=== PATIENT | female | born 1930 | race Caucasian/White ===

== ENCOUNTER 2018-04-01 13:48 | Emergency (ER) | payer OTHER, BC ==
[2018-04-01 13:54] VITALS: BMI 25.7
--- NOTE | 2018-04-01 14:04 | PDOC ---
History of Present Illness - General Chief Complaint: Redness To Affected Area Stated Complaint: LT SWOLLEN LEG Time Seen by Provider: 04/01/18 14:04 History Source: Patient, Family Exam Limitations: No Limitations - History of Present Illness Initial Comments: 04/01/18 14:27 88 year old female with PMH SC, TIA, PAD, baseline use of walker presents to ED today for bilateral feet swelling and redness x2 days. She states the left is worse than the right. She denies fever, chills, nausea, vomiting, diarrhea, chest pain, shortness of breath, palpitations, lightheadedness, dizziness, weakness, numbness, tingling. Pt took tramadol 50 mg today at 1100. Pt normally walks with a walker, but today was unable to walk and started using a wheelchair. She was seen by Dr. Gael Corona 12/15/17 for leg pain, was diagnosed with PAD. Denies recent steroid use, Hx diabetes, Hx spinal injections, Hx immunosuppression. PCP - Dr. Gatica Vascular - Dr. Gael Corona Neuro - Dr. Armstrong Allergies - Penicillin Past History - Past Medical History Allergies/Adverse Reactions: Allergies Allergy/AdvReac Type Severity Reaction Status Date / Time Penicillins Allergy Verified 04/01/18 13:53 Home Medications: Ambulatory Orders Aspirin [ASA -] 1 tab PO DAILY 12/19/17 Enalapril Maleate [Vasotec] 2.5 mg PO DAILY 12/19/17 Metoprolol Tartrate 12.5 mg PO DAILY 12/19/17 Pravastatin Sodium 10 mg PO HS 12/19/17 Carbidopa/Levodopa [Rytary ER 61.25 mg-245 mg Cap] 1 each PO BID 04/01/18 Cholecalciferol (Vitamin D3) [Vitamin D3] 1,000 unit PO DAILY 04/01/18 Sulfamethoxazole/Trimethoprim [Bactrim Ds -] 1 tab PO BID 3 Days #6 tablet 04/01 Tramadol HCl 50 mg PO TID 04/01/18 Cardiac Disorders: Yes (cardiac stents) COPD: No HTN: Yes Hypercholesterolemia: Yes - Suicide/Smoking/Psychosocial Hx Smoking History: Never smoked Review of Systems - Review of Systems Able to Perform ROS?: Yes Comments:: 04/01/18 14:30 General: denies fever, chills, night sweats, generalized weakness. HEENT: denies sore throat, rhinorrhea, ear pain. Heart: denies chest pain, palpitations, syncope, lower extremity swelling, diaphoresis. Respiratory: denies shortness of breath, cough, sputum production, hematemesis. Abdomen: denies abdominal pain, nausea, vomiting, diarrhea, constipation, blood in stool. : denies dysuria, increased urinary frequency, hematuria, urinary incontinence , flank pain. Back: denies back pain, flank pain. Musculoskeletal: admits to foot pain and swelling. Neurological: denies headache, dizziness, numbness, tingling, weakness. Skin: admits to redness of feet. *Physical Exam - Vital Signs Last Vital Signs Temp Pulse Resp BP Pulse Ox 97 F L 85 18 129/72 99 04/01/18 13:51 04/01/18 13:51 04/01/18 13:51 04/01/18 13:51 04/01/18 13:51 - Physical Exam Comments: 04/01/18 14:31 Appearance: comfortable. HEENT: head is normocephalic, atraumatic. EOMI. PERRLA. Neck: supple. Full ROM. Heart: regular rhythm. no murmurs, rubs or gallops. No pericardial friction rub. Lungs: clear to auscultation bilaterally. no crackles, rhonchi or wheezing. no stridor. Abdomen: soft, nontender. normal bowel sounds. no rebound, guarding, masses. Extremities: 0/2 DSP bilaterally. 2/2 radial pulse bilaterally. pain to palpation of bilateral lower extremity. Left foot: non-pitting edema, erythema noted. Right foot: minimal non-pitting edema, minimal erythema noted. Neurological: Alert. Oriented x3. CN 2-12 grossly intact. Moves all four extremities. Full sensation all extremities and bilateral face. ED Treatment Course - LABORATORY CBC & Chemistry Diagram: 04/01/18 15:02 04/01/18 15:02 Medical Decision Making - Medical Decision Making 04/01/18 14:33 88 year old female with PMH SC, TIA, PAD, baseline walker use c/o bilateral foot swelling and erythema x2 days. Left>Right non-pitting edema and erythema. Denies diabetes, steroid use, immunosuppression, IV drug abuse. Initial Vital Signs Temp Pulse Resp BP Pulse Ox 97 F L 85 18 129/72 99 04/01/18 13:51 04/01/18 13:51 04/01/18 13:51 04/01/18 13:51 04/01/18 13:51 Low temperature - 97F. No tachycardia. Pt is on metoprolol. No hypotension. No hypoxia. Pending labs, CXR, UA/UC, Blood culture. 04/01/18 14:49 CXR report - negative 04/01/18 16:47 No leukocytosis. Infection unlikely. 04/01/18 17:14 Lower extremity ultrasound negative for DVT. Pending arterial US. 04/01/18 18:27 Arterial US report - Occluded superficial femoral artery with laterals consitituting at the left popliteal artery. Mild to moderate right lower extremity peripheral arterial disease. An attempt was made to call pt's vascular physician, Dr. Corona, was told he is out of town and there is no weekend coverage. Paging vascular physician chairperson anesthesiology, Dr. Ivey. 04/01/18 18:35 I discussed the case with Dr. Ivey, who does not think a CTA of the left lower extremity is necessary at this time. *DC/Admit/Observation/Transfer Diagnosis at time of Disposition: Leg edema, Urinary tract infection - Discharge Dispostion Disposition: HOME Condition at time of disposition: Stable Decision to Admit order: No - Prescriptions Prescriptions: Sulfamethoxazole/Trimethoprim [Bactrim Ds -] 1 tab PO BID 3 Days #6 tablet - Referrals Referrals: Mike Gatica MD [Primary Care Provider] - - Patient Instructions Printed Discharge Instructions: DI for Peripheral Vascular (Arterial) Disease, DI for Urinary Tract Infection (UTI) Additional Instructions: You were seen today for feet swelling and redness. Your blood work revealed no change from your last blood work in November. Your chest x-ray was normal. Your ultrasound of your veins in your legs revealed no deep vein thrombosis, or clot in your legs. Your ultrasound of your arteries in your legs revealed similar results to the ultrasound you had performed in November. I have included a copy of the report in your discharge paperwork. I spoke with our vascular surgeon chairperson anesthesiology, who advised out-patient treatment. Please call your vascular physician, Dr. Corona, on Tuesday to make an appointment for this coming week. Tell him you were seen in the Emergency Department, and bring the paperwork given to you today with you. Your urine analysis revealed you have a urinary tract infection. I have sent a prescription for an Bactrim (an antibiotic) for your urinary tract infection to your pharmacy. Take one pill by mouth every 12 hours for a total of six doses. Do not miss any doses. Take all of the pills prescribed to you. Take a probiotic with your antibiotic to prevent diarrhea. Stay hydrated, drink water throughout the day. Please follow up with your primary care physician, Dr. Gatica, in the next 7 days. Call his office on Tuesday to make an appointment, let him know you were seen in the Emergency Department. Bring the paperwork given to you today with you to your appointment. Please return to the Emergency Department if your feet become pale, cold, blue, increasingly painful, if you develop fever, chills, nausea, vomiting, flank pain , back pain, abdominal pain, chest pain, shortness of breath, lightheadedness like you may pass out, dizziness like the room is spinning, weakness or any other new, worsening or concerning symptoms. - Post Discharge Activity
--- NOTE | 2018-04-01 15:01 | PDOC ---
Attending Attestation - Resident Resident Name: Gilda Hu - ED Attending Attestation I have performed the following: I have examined & evaluated the patient, The case was reviewed & discussed with the resident, I agree w/resident's findings & plan, Exceptions are as noted - HPI HPI: 04/01/18 15:00 88y F hx of PAD, CAD s/p mi, TIA, presents with b/l LE edema/redness x 2-3 days , no associated fever/chills, cp, sob, palptiations, dizziness, tingling/ numnbess/weakness. Pt noticed some b/l swelling to the legs thurs night and notes that it has been more painful when she is ambulating. Normally ambulates with a walker but recently having diffulcty getting around so is using a wheelchair. pt with hx of PAD and had seen dr calabrese in the past. exam: Extremity - symmetric hyperemia in the b/l feet, cap refill ~2sec b/l, skin is warm to touch, sensation intact, +1 pitting edema, no calf tenderness/cords, neg homans sign suspect possible vasular occlusion, consider dvt, no warmth to sugest inffection will obtain US arterial study to r/o occlusion will ck las will reassess - Physicial Exam PE: 04/01/18 15:01 see above - Medical Decision Making 04/01/18 16:23 see above 04/01/18 19:00 DUplex neg for DVT +arter occlusion, but similar to previously documented, suspect perfusion via collatorals. discussed with dr. shell do not suspect acute occlusion will have pt elevate her legs ua noted for UTI, will treat wiht macrobid will dc with pmd and vasciualr fu this week return precautions were discussed Heart Score/ECG Review - ECG Impressions Comment:: 04/01/18 16:23 Twelve-lead EKG was performed and reviewed by me. There is normal sinus rhythm with a normal rate. rate of 63 normal axes
[2018-04-01 15:14] LABS: BASO % 1.1 % (0-2.0); EOS % 4.9 % (0-4.5); LYMPH % 20.6 % (8-40); MCH 29.4 pg (25.7-33.7); MCHC 33.3 g/dl (32.0-36.0); MEAN CELL VOLUME 88.3 fl (80-96); MEAN PLT VOLUME 9.7 fl (7.5-11.1); MONO % 10.5 % (3.8-10.2); NEUT % 62.9 % (42.8-82.8); PLATELET COUNT 212 K/MM3 (134-434); RBC 4.08 M/mm3 (3.60-5.2); RDW 13.2 % (11.6-15.6); WHITE BLOOD COUNT 6.8 K/mm3 (4.0-10.0)
[2018-04-01 15:40] LABS: ALBUMIN 2.9 g/dl (3.4-5.0); ANION GAP 6 (8-16); BILIRUBIN,TOTAL 0.4 mg/dL (0.2-1.0); BLOOD UREA NITROGEN 28 mg/dL (7-18); CALCIUM 9.1 mg/dL (8.5-10.1); CHLORIDE 107 mmol/L (98-107); CO2 27 mmol/L (21-32); CREATININE 1.2 mg/dL (0.55-1.02); GLUCOSE,RANDOM 92 mg/dL (74-106); POTASSIUM 4.6 mmol/L (3.5-5.1); SGOT/AST 18 U/L (15-37); SGPT/ALT 7 U/L (12-78); SODIUM 140 mmol/L (136-145); TOT PROT 6.2 g/dl (6.4-8.2)
[2018-04-01 15:41] LABS: ALK PHOS 106 U/L (45-117)
[2018-04-01 15:46] LABS: INR 1.12 (0.83-1.09); PROTHROMBIN TIME (PATIENT) 12.7 SEC (9.7-13.0)
[2018-04-01 15:49] LABS: ACTIVATED PTT 23.7 SECONDS (25.2-36.5)
[2018-04-01 18:13] LABS: URINE APPEARANCE TURBID; URINE BILIRUBIN NEGATIVE (<2.0 mg/dL); URINE COLOR YELLOW; URINE GLUCOSE (UA) NEGATIVE (NEGATIVE); URINE KETONE TRACE (NEGATIVE); URINE NITRITE NEGATIVE (NEGATIVE); URINE PROTEIN NEGATIVE (NEGATIVE); URINE UROBILINOGEN NEGATIVE mg/dL (0.2-1.0)
[2018-04-01 18:21] LABS: URINE LEUK ESTERASE 3+ (NEGATIVE)
[2018-04-01 18:31] LABS: EPI CELLS RARE /HPF (FEW); URINE BACTERIA RARE /hpf (NONE SEEN); URINE MUCUS RARE
[2018-04-01 18:40] VITALS: BP 142/58; PULSE 64; TEMP 97.3
[2018-04-01] MEDS ORDERED: ACETAMINOPHEN 325 MG TABLET (FP) PO ONE (18:40)
[2018-04-01] MEDS ORDERED: ACETAMINOPHEN 325 MG TABLET (FP) ONE (18:48)
--- NOTE | 2018-04-02 08:57 | EKG ---
Test Reason : Blood Pressure : / mmHG Vent. Rate : 063 BPM Atrial Rate : 063 BPM P-R Int : 174 ms QRS Dur : 080 ms QT Int : 408 ms P-R-T Axes : 039 -15 023 degrees QTc Int : 417 ms NORMAL SINUS RHYTHM POSSIBLE ANTEROLATERAL INFARCT , AGE UNDETERMINED ABNORMAL ECG NO PREVIOUS ECGS AVAILABLE Confirmed by KIRK LINARES MD ([id number]) on 04/02/2018 8:56:50 AM Referred By: Confirmed By:KIRK LINARES MD
== END 2018-04-01 19:35 | disposition home or self-care (01) ==
LOC: JER 13:48
DX: N39.0 Urinary tract infection, site not specified (principal); M79.89 Other specified soft tissue disorders; I25.2 Old myocardial infarction; Z86.73 Personal history of transient ischemic attack (TIA), and cerebral infarction without residual deficits; Z99.89 Dependence on other enabling machines and devices
CPT/HCPCS: 36415; 71045-TC-FY; 80053; 81003; 81015; 83605; 85025; 85610; 85730; 87040; 87086; 87186; 93005; 93010; 93925-TC; 93970-TC; 99283-25

== ENCOUNTER 2018-07-05 15:24 | Emergency (ER) | payer OTHER, BC ==
--- NOTE | 2018-07-05 15:26 | PDOC ---
Attending Attestation - Resident Resident Name: PiterDamir - ED Attending Attestation I have performed the following: I have examined & evaluated the patient, The case was reviewed & discussed with the resident, I agree w/resident's findings & plan, Exceptions are as noted - HPI HPI: 07/05/18 18:45 Patient fell yesterday, was found sitting on the floor by her daughter. Bruise noted on the left forehead, but otherwise seemed fine. Mental status is as usual and ambulating as she ordinarily does with her walker without difficulty. Patient has chronic pain and weakness in both legs, and her daughter thinks that she fell because she did not use her walker to transfer from bed to her chair. No chest pain, shortness of breath, abdominal pain, nausea, vomiting, diarrhea, visual or focal neurologic symptoms. - Physicial Exam PE: 07/05/18 18:47 Physical exam: Normal vital signs. Minor contusion of the left forehead. No pain or tenderness in the head or neck Neurologically intact. No other significant abnormalities. Physical exam shows evidence of an old anterolateral SD but no acute ischemia and no significant change since prior. CBC and chemistries are significant only for a mild drop in hemoglobin and hematocrit since March. 07/05/18 18:48 CT of the head shows no sign of a bleed or other significant intracranial trauma.
--- NOTE | 2018-07-05 15:32 | PDOC ---
History of Present Illness - General Chief Complaint: Injury Stated Complaint: FELL GETTING OUT OF CHAIR Time Seen by Provider: 07/05/18 15:31 History Source: Patient Exam Limitations: No Limitations - History of Present Illness Initial Comments: 07/05/18 17:06 Ms. Michele is a 88 yo F with a hx of PAD, CAD s/p [place] (2005), TIA (2017), and arthritis presents to the emergency department s/p fall yesterday at approximately 7:00 pm. The patient does not remember how she fell and denies the following symptoms prior to the fall: dizziness, lightheadedness, chest pain , SOB, nausea, and vomiting. Per the daughter, who the patient lives with, she found her on the floor within the hour after she fell sitting upright with a bruise on the left forehead. The daughter denies that the patient has a history of falls. At baseline, the patient knows herself, but does not know the date or where she is at outside of her home. Per the daughter, the patient has not had a change in mentation and was able to ambulate with her walker (baseline is using walker) after the fall. The patient denies pain currently. Her last cardiology appointment 04/[address] Prasad had a regular rhythm on the EKG. She denies the following: hx of dysrhythmias, fever, chills, SOB, headaches, visual changes, nausea, vomiting, abdominal pain, dysuria, hematuria, hematochezia, melena, and leg pain/swelling. Pmhx: Refer to above Shx: Cataracts bilaterally Meds: Metoprolol, enalapril, pravastatin, aspirin 81 mg, and tramadol Allergies: PCN (anaphylaxis reaction) Social: Denies tobacco, alcohol, and substance abuse. Past History - Past Medical History Allergies/Adverse Reactions: Allergies Allergy/AdvReac Type Severity Reaction Status Date / Time Penicillins Allergy Verified 07/05/18 15:25 Home Medications: Ambulatory Orders Aspirin [ASA -] 81 tab PO DAILY 12/19/17 Acetaminophen [Tylenol -] 500 mg PO TID 07/05/18 Carbidopa/Levodopa [Carbidopa-Levodopa 25-100 Tab] 1 each PO TID 07/05/18 Cholecalciferol (Vitamin D3) [Vitamin D3] 1,000 unit PO DAILY 07/05/18 Enalapril Maleate 2.5 mg PO DAILY 07/05/18 Metoprolol Tartrate 12.5 mg PO DAILY 07/05/18 Pravastatin Sodium 10 mg PO DAILY 07/05/18 Tramadol HCl 50 mg PO TID 07/05/18 Cardiac Disorders: Yes (cardiac stents) COPD: No HTN: Yes Hypercholesterolemia: Yes - Suicide/Smoking/Psychosocial Hx Smoking History: Never smoked Review of Systems - Review of Systems Able to Perform ROS?: Yes Is the patient limited Swazi proficient: No Constitutional: No: Chills, Diaphoresis, Fever, Unexplained wgt Loss HEENTM: No: Eye Pain, Blurred Vision, Recent change in vision, Nose Pain, Throat Pain, Mouth Pain Respiratory: No: Cough, Shortness of Breath Cardiac (ROS): No: Chest Pain, Lightheadedness, Palpitations, Chest Tightness ABD/GI: No: Constipated, Diarrhea, Difficulty Swallowing, Nausea, Poor Fluid Intake, Rectal Bleeding, Vomiting, Tarry Stools : No: Burning, Dysuria, Hematuria Musculoskeletal: No: Back Pain, Joint Pain, Muscle Pain Integumentary: Yes: Bruising (left forehead). No: Rash Neurological: No: Headache, Numbness, Paresthesia, Ataxia Psychiatric: No: Anxiety Endocrine: No: Unexplained Weight Gain Hematologic/Lymphatic: No: Anemia *Physical Exam - Physical Exam General Appearance: Yes: Nourished, Appropriately Dressed HEENT: positive: EOMI, MAYKEL, Normal ENT Inspection, Normal Voice, Symmetrical, TMs Normal, Pharynx Normal, Other (left forehead frontal aspect with bruising without open laceration). negative: TM Bulging, TM Dull, TM Erythema Neck: negative: Lymphadenopathy (R), Lymphadenopathy (L) Respiratory/Chest: positive: Lungs Clear, Normal Breath Sounds. negative: Chest Tender, Respiratory Distress, Accessory Muscle Use, Rhonchi, Stridor, Wheezing Cardiovascular: positive: Regular Rate, S1, S2, Systolic Murmur (grade 1), Irregularly Irregular Gastrointestinal/Abdominal: positive: Normal Bowel Sounds, Flat, Soft. negative : Tender, Pulsatile Mass Lymphatic: negative: Adenopathy Musculoskeletal: positive: Normal Inspection. negative: CVA Tenderness Extremity: positive: Normal Capillary Refill, Normal Inspection, Normal Range of Motion. negative: Tender, Cyanosis, Swelling, Erythema Integumentary: positive: Normal Color, Dry, Warm Neurologic: positive: durable medical equipment technician II-XII NML intact, Alert, Normal Mood/Affect, Motor Strength 5/5. negative: Fully Oriented (alert and oriented to self only (at baseline)), Facial Droop, Sensory Deficit Heart Score/ECG Review - ECG Intrepretation Comment:: 07/05/18 18:28 ventricular rate is 76 bpm, [place] 200 ms, QRS 76 ms, QTc is 461 ms,. with normal sinus rhythm with borderline left axis deviation with non progression of R waves in the V4-V6 leads that are suggestive of an infarct older of jeannette- lateral. 07/05/18 18:30 ED Treatment Course - LABORATORY CBC & Chemistry Diagram: 07/05/18 17:09 07/05/18 17:09 Medical Decision Making - Medical Decision Making 07/05/18 18:19 Ms. Michele is a 88 yo F with a hx of PAD, CAD s/p [place] (2005), TIA (2017), and arthritis presents to the emergency department s/p fall yesterday at approximately 7:00 pm. Initial vitals: Initial Vital Signs Temp Pulse Resp BP Pulse Ox 97.4 F L 79 20 139/71 99 07/05/18 15:25 07/05/18 15:25 07/05/18 15:25 07/05/18 15:25 07/05/18 15:25 ddx: fall possibly secondary to mechanical vs cardiogenic (ACS vs arrhythmia) vs neurogenic (vasal vagal response vs intracranial mass) vs metabolic disturbance (electrolyte abnormality) vs infectious etiology (UTI vs URI) Work up: Laboratory Tests 07/05/18 07/05/18 07/05/18 17:09 17:09 17:09 WBC 7.3 RBC 3.34 L Hgb 10.0 L Hct 30.1 L MCV 90.2 MCH 29.9 MCHC 33.2 RDW 13.9 Plt Count 219 MPV 8.6 Absolute Neuts (auto) 4.7 Neutrophils % 63.6 Lymphocytes % 20.3 Monocytes % 10.3 H Eosinophils % 4.6 H Basophils % 1.2 Sodium 140 Potassium 4.1 Chloride 108 H Carbon Dioxide 23 Anion Gap 9 BUN 34 H Creatinine 1.0 Creat Clearance w eGFR 52.20 Random Glucose 115 H Calcium 8.9 Total Bilirubin 0.5 AST 20 ALT < 8 L Alkaline Phosphatase 88 Troponin I 0.03 Total Protein 5.6 L Albumin 2.9 L Urine Color Urine Appearance Urine pH Ur Specific [place] Urine Protein Urine Glucose (UA) Urine Ketones Urine Blood Urine Nitrite Urine Bilirubin Urine Urobilinogen Ur Leukocyte Esterase Urine RBC Urine WBC Ur Epithelial Cells Urine Bacteria Stool Occult Blood 07/05/18 07/05/18 18:09 18:44 WBC RBC Hgb Hct MCV MCH MCHC RDW Plt Count MPV Absolute Neuts (auto) Neutrophils % Lymphocytes % Monocytes % Eosinophils % Basophils % Sodium Potassium Chloride Carbon Dioxide Anion Gap BUN Creatinine Creat Clearance w eGFR Random Glucose Calcium Total Bilirubin AST ALT Alkaline Phosphatase Troponin I Total Protein Albumin Urine Color Yellow Urine Appearance Clear Urine pH 5.5 Ur Specific [place] 1.015 Urine Protein Negative Urine Glucose (UA) Negative Urine Ketones Negative Urine Blood Trace-intact H Urine Nitrite Negative Urine Bilirubin Negative Urine Urobilinogen 0.2 Ur Leukocyte Esterase Negative Urine RBC 5-10 Urine WBC 0-2 Ur Epithelial Cells 1+ Urine Bacteria 1+ Stool Occult Blood Negative Her hemoglobin was at 10 which is her normal levels based on previous visits. The patient had negative leuk est and nitrite on UA and her stool occult was negative. Troponin was within normal limits. Head CT did not show acute intracranial pathology. Patient was reassessed. Her irregular heart rhythm that was initially ausculated converted to normal sinus rhythm as reflected on the EKG. The irregular rhythm was auscultated by the attending, myself, and the medical student. The patient remains asymptomatic. Orthostatics was done which resulted in the followin/80 BP while laying down in the right arm and 142/86 while standing on the right arm for 3 minutes. The patient was able to tolerate standing and walking with her walker. She was instructed to have close follow up with her director staffing for holter monitor placement given that her sinus rhythm did not convert back to dysrhythmia. She understood the plan and agreed to it. Dispo: DC to home *DC/Admit/Observation/Transfer Diagnosis at time of Disposition: Fall Qualifiers: Encounter type: initial encounter Qualified Code(s): W19.XXXA - Unspecified fall, initial encounter - Discharge Dispostion Disposition: HOME Condition at time of disposition: Good Decision to Admit order: No - Referrals Referrals: Mike Gatica MD [Staff Physician] - - Patient Instructions Additional Instructions: You were seen in the emergency department for an evaluation after your fall. Your head CT showed no acute pathologies within the cranium. Your lab work showed a hemoglobin of 10 with a hematocrit of 30, which is a decrease from 12 hemoglobin and 35 hematocrit from March 2018. Your urine did not show an infection. You had an irregular heart rhythm initially on exam, however you converted to a normal heart rhythm during the EKG which was grossly unchanged from your previous EKG in March 2018. Please follow up with your primary medical doctor, Dr. Gatica, within 24-36 hours after discharge. In addition, please follow up with your director staffing, Dr. Abhinav Prasad, within 24-36 hours after discharge for continued management. Please return to the emergency department if you fall again or experience new concerning symptoms such as chest pain, shortness of breath, fever, chills, and nausea/vomiting. Please use your walker at all times when walking around. Thank you. - Post Discharge Activity
[2018-07-05 15:51] VITALS: TEMP 97.4; BMI 24.7
[2018-07-05 17:32] LABS: BASO % 1.2 % (0-2.0); EOS % 4.6 % (0-4.5); HEMATOCRIT 30.1 % (32.4-45.2); LYMPH % 20.3 % (8-40); MCH 29.9 pg (25.7-33.7); MCHC 33.2 g/dl (32.0-36.0); MEAN CELL VOLUME 90.2 fl (80-96); MEAN PLT VOLUME 8.6 fl (7.5-11.1); MONO % 10.3 % (3.8-10.2); NEUT % 63.6 % (42.8-82.8); PLATELET COUNT 219 K/MM3 (134-434); RBC 3.34 M/mm3 (3.60-5.2); RDW 13.9 % (11.6-15.6); WHITE BLOOD COUNT 7.3 K/mm3 (4.0-10.8)
[2018-07-05 18:01] LABS: ALBUMIN 2.9 g/dl (3.5-5.0); ALK PHOS 88 U/L (32-92); ANION GAP 9 MMOL/L (8-16); BILIRUBIN,TOTAL 0.5 mg/dl (0.2-1.0); BLOOD UREA NITROGEN 34 mg/dl (7-18); CALCIUM 8.9 mg/dl (8.4-10.2); CHLORIDE 108 mmol/L (98-107); CO2 23 mmol/L (22-28); GLUCOSE,RANDOM 115 mg/dl (74-106); POTASSIUM 4.1 mmol/L (3.5-5.1); SGOT/AST 20 U/L (10-42); SODIUM 140 mmol/L (136-145); TOT PROT 5.6 g/dl (6.4-8.3)
[2018-07-05 18:12] LABS: SGPT/ALT < 8 U/L (10-40)
[2018-07-05 18:26] LABS: PH,URINE 5.5 (4.5-8); URINE APPEARANCE Clear; URINE BILIRUBIN Negative (NEGATIVE); URINE COLOR Yellow; URINE GLUCOSE (UA) Negative (NEGATIVE); URINE KETONE Negative (NEGATIVE); URINE LEUK ESTERASE Negative (NEGATIVE); URINE NITRITE Negative (NEGATIVE); URINE PROTEIN Negative (NEGATIVE); URINE UROBILINOGEN 0.2 (0.2-1.0)
[2018-07-05 19:00] LABS: EPI CELLS 1+ /HPF; URINE BACTERIA 1+ /hpf (NEGATIVE); URINE WBC 0-2 (0-5)
[2018-07-05 19:08] VITALS: BP 142/86; PULSE 95
--- NOTE | 2018-07-06 11:12 | EKG ---
Test Reason : Blood Pressure : / mmHG Vent. Rate : 076 BPM Atrial Rate : 076 BPM P-R Int : 200 ms QRS Dur : 076 ms QT Int : 410 ms P-R-T Axes : 048 -02 042 degrees QTc Int : 461 ms NORMAL SINUS RHYTHM POSSIBLE LEFT ATRIAL ENLARGEMENT LOW VOLTAGE QRS NONSPECIFIC ST AND T WAVE ABNORMALITY ABNORMAL ECG WHEN COMPARED WITH ECG OF 01-APR-2018 15:32, NONSPECIFIC T WAVE ABNORMALITY NOW EVIDENT IN LATERAL LEADS Confirmed by SWATHI GARCIA MD ([id number]) on 07/06/2018 11:12:27 AM Referred By: DR DUNNE Confirmed By:SWATHI GARCIA MD
== END 2018-07-05 19:21 | disposition home or self-care (01) ==
LOC: FER 15:24
DX: S09.90XA Unspecified injury of head, initial encounter (principal); W18.39XA Other fall on same level, initial encounter; Y93.9 Activity, unspecified; Y92.009 Unspecified place in unspecified non-institutional (private) residence as the place of occurrence of the external cause; I73.9 Peripheral vascular disease, unspecified; Z86.73 Personal history of transient ischemic attack (TIA), and cerebral infarction without residual deficits; I25.2 Old myocardial infarction; I25.10 Atherosclerotic heart disease of native coronary artery without angina pectoris; I10 Essential (primary) hypertension; E78.00 Pure hypercholesterolemia, unspecified; Z95.5 Presence of coronary angioplasty implant and graft
CPT/HCPCS: 36415; 70450-TC; 80053; 81003; 81015; 82272; 84484; 85025; 87086; 87186; 93005; 99283-25